=== PATIENT | female | born 1965 | race Hispanic/Latino ===

== ENCOUNTER → 2024-10-29 | Outpatient (CLI) | payer BC, OTHER ==
--- NOTE | 2024-10-29 13:27 | HMCIMG ---
NM GASTRIC EMPTYING STUDY REASON: UPPER ABDOMINAL PAIN. COMPARISON: None TECHNIQUE: Nuclear gastric emptying study was performed with 1.5 mCi of technetium sulfa colloid with scrambled eggs through oral route. FINDINGS: T half of gastric emptying is 70 minutes. IMPRESSION: Normal gastric emptying with T half of 70 minutes.
== END | disposition home or self-care (01) ==
LOC: RAH 08:08
PROVIDERS: ATTEND Internal Medicine Gastroenterology
DX: R10.10 Upper abdominal pain, unspecified (principal)
CPT/HCPCS: 78264; A9541